=== PATIENT | female | born 1990 | race Caucasian/White ===

== ENCOUNTER 2021-04-05 20:35 | Emergency (ER) | payer BC ==
[~2021-04-05] VITALS: Ht 162.6 cm; Wt 59.0 kg
--- NOTE | 2021-04-05 20:45 | NUR ---
PATIENT BIB [facility] 87 FROM HOME FOR C/O VAGINAL BLEED. PATIENT STATES SHE GAVE AT [facility] 6 DAYS AGO WITH COMPLICATION. PATIENT STATES AFTER GIVING , THEY HAD TO SURGICALLY REMOVE PLACENTA. BLEEDING STARTED ABOUT 1HRS AGO. ARRIVED WITH 18G ON LEFT AC AND 500ML OF NS BOLUS CHRONIC CARE NURSE.
[2021-04-05] MEDS ORDERED: IV NS 1000 ML 1,000 ML IV ONE ×2 (21:30)
[2021-04-05] MEDS ORDERED: VASOPRESSIN 40 UNIT in IV NORMAL SALINE 40 ML IV PRN (21:30)
--- NOTE | 2021-04-05 21:44 | NUR ---
Dr Thomas speaking with Dr Raj EPPS who is monitor tech for Dr Sonja Allan.
[2021-04-05 22:00] LABS: HEMATOCRIT 25.5 % (31.2-41.9); MEAN CORPUSCULAR VOLUME 94.5 fL (75.5-95.3); PLATELET COUNT (AUTO) 182 K/uL (179-408)
[2021-04-05] MEDS ORDERED: MISOPROSTOL 100 MCG TABLET PO SCH (22:00)
[2021-04-05] MEDS ORDERED: METHYLERGONOVINE MALEATE 0.2 MG/ML AMP IV ONE (22:00)
[2021-04-05] MEDS ORDERED: METHYLERGONOVINE MALEATE 0.2 MG/ML AMP ONE (22:05)
[2021-04-05 22:06] LABS: CREATININE 0.9 mg/dL (0.6-1.3)
[2021-04-05] MEDS ORDERED: VASOPRESSIN 20 UNIT/ML VIAL ONE (22:37)
[2021-04-05 22:45] VITALS: BP 123/69
[2021-04-05] MEDS ORDERED: HYDROMORPHONE 1 MG/1 ML DISP.SYRIN IV ONE (22:45)
[2021-04-05] MEDS ORDERED: ONDANSETRON 4 MG/2 ML VIAL IV ONE (22:45)
[2021-04-05] MEDS ORDERED: ONDANSETRON 4 MG/2 ML VIAL ONE (22:54)
[2021-04-05] MEDS ORDERED: HYDROMORPHONE 1 MG/1 ML DISP.SYRIN ONE (22:54)
--- NOTE | 2021-04-05 23:24 | NUR ---
Dr Thomas made aware of patient latest VS and gave verbal order to keep same dose of Vasopressin at 0.02 unit per minute.
--- NOTE | 2021-04-06 00:14 | NUR ---
Called [facility] and spoke to Odilia who requested facesheet to be faxed to .
--- NOTE | 2021-04-06 00:23 | NUR ---
Patient AAOX4. In no apparent distress. Still having some vaginal bleeding with blood clots. Shauna care provided. Continue to monitor.
[2021-04-06] MEDS ORDERED: HYDROMORPHONE 1 MG/1 ML DISP.SYRIN ONE (01:09)
--- NOTE | 2021-04-06 01:14 | NUR ---
Informed Dr Thomas patient latest VS. BP 73/55, HR 136. With order to give bolus IV NS 1000ml.
[2021-04-06] MEDS ORDERED: IV NORMAL SALINE 1000 ML BAG IV ONE (01:30)
[2021-04-06] MEDS ORDERED: HYDROMORPHONE 1 MG/1 ML DISP.SYRIN IV ONE (01:30)
--- NOTE | 2021-04-06 01:30 | NUR ---
Telephone call to [facility] to give report. Nurse stated they will call back for the report.
--- NOTE | 2021-04-06 02:05 | NUR ---
Report given to Javan Keen.
--- NOTE | 2021-04-06 02:18 | NUR ---
Telephone call to [facility] ambulance spoke to Jose, stated ETA in 10 mins.
--- NOTE | 2021-04-06 02:35 | NUR ---
Telephone call to [facility] ambulance spoke to Jose to follow up on ambulance arrival, stated they are [address] from the hospital.
--- NOTE | 2021-04-06 03:04 | NUR ---
Patient Tranfers to outside Facility Physician: Dr Anthony (OB) Location:[facility] Room [address] [facility] ambulance #[id number]. Accompanied by 2 paramedics via gurney. belongings with patient
== END 2021-04-06 03:07 | disposition short-term general hospital (02) ==
LOC: ER 20:38
DX: O72.1 Other immediate postpartum hemorrhage (principal); D50.0 Iron deficiency anemia secondary to blood loss (chronic); R00.0 Tachycardia, unspecified; R55 Syncope and collapse; Z88.0 Allergy status to penicillin
CPT/HCPCS: 36415; 76856; 80048; 83605; 85025; 86850; 86900; 86901; 93005; 96361 ×2; 96374; 96375; 96376; 99291; J1170 ×2; J2210; J2405; J3490; J7030